=== PATIENT | female | born 1995 | race Caucasian/White ===

== ENCOUNTER 2024-02-13 14:55 | Inpatient (IN) ==
[2024-02-13] MEDS ORDERED: LIDOCAINE 1% LOCAL 20 ML VIAL INFIL PRN (15:48)
[2024-02-13] MEDS ORDERED: ACETAMINOPHEN 500 MG TAB PO PRN (15:48)
[2024-02-13] MEDS ORDERED: CALCIUM CARBONATE 500 MG CHEWABLE TAB PO PRN (15:48)
[2024-02-13 16:20] LABS: Hematocrit (blood only) 38.6 % (37.0-47.0); Hemoglobin 13.5 g/dl (12.0-16.0); Mean Corpuscular Hemoglobin 33.1 pg (25.0-34.0); Mean Corpuscular Volume 94.6 fL (80.0-100.0); Mean Platelet Volume 11.2 fL (9.4-12.4); Platelet Count 121 K/uL (130-400); RDW Coefficient of Variation 12.8 % (11.5-14.5); RDW Standard Deviation 44.3 fL (36.4-46.3); Red Blood Count 4.08 M/uL (4.20-5.40); White Blood Count 9.91 K/ul (4.8-10.8)
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
[2024-02-13] MEDS ORDERED: OXYTOCIN 30 UNITS/NSS 30 UNITS/500 ML BAG IV PRN ×2 (17:47→23:05)
[2024-02-13] MEDS: SODIUM CHLORIDE 0.9% 1,000 ML IV SCH (18:54)
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
[2024-02-13] MEDS ORDERED: NALOXONE HCL 1 MG in SODIUM CHLORIDE 0.9% 1,000 ML IV PRN (19:51)
[2024-02-13] MEDS ORDERED: ePHEDrine sulfate 50 MG/ML AMP IV PRN (19:51)
[2024-02-13] MEDS: fentANYL 2 MCG/ML BUPIVacaine 0.125%-NSS 100ML BAG ONE (19:51)
[2024-02-13] MEDS: BUPIVACAINE 0.25% PF 30 ML VIAL ONE (19:51)
[2024-02-13] MEDS ORDERED: SODIUM CHLORIDE 0.9% PF INJ 10 ML VIAL EPI PRN (19:51)
[2024-02-13] MEDS ORDERED: ROPIVACAINE 0.5% PF 5 MG/ML 20 ML VIAL EPI PRN (19:51)
[2024-02-13] MEDS ORDERED: BUPIVACAINE 0.25% PF 30 ML VIAL EPI PRN (19:51)
[2024-02-13] MEDS: fentaNYL citrate PF 100 MCG/2 ML VIAL ONE (19:51)
[2024-02-13] MEDS ORDERED: ONDANSETRON INJ 2 MG/ML 2 ML VIAL IV PRN (19:51)
[2024-02-13] MEDS ORDERED: fentANYL 2 MCG/ML BUPIVacaine 0.125%-NSS 100ML BAG EPI PRN (19:51)
[2024-02-13] MEDS ORDERED: LIDOCAINE 2% MPF LOCAL 5 ML VIAL EPI PRN (19:51)
[2024-02-13] MEDS ORDERED: NALOXONE HCL 0.4 MG/1 ML VIAL/CARP IV PRN (19:51)
[2024-02-13] MEDS ORDERED: fentaNYL citrate PF 100 MCG/2 ML VIAL EPI PRN (19:51)
[2024-02-13] MEDS: LIDOCAINE 2%/EPINEPHRINE 1:200,000 20 ML PF ONE (19:52)
[2024-02-13] MEDS: SODIUM CHLORIDE 0.9% PF INJ 10 ML VIAL ONE (19:53)
[2024-02-13] MEDS: ePHEDrine sulfate 50 MG/ML AMP ONE (19:53)
[2024-02-13] MEDS: fentaNYL citrate PF 100 MCG/2 ML VIAL EPI STA (20:11)
[2024-02-13] MEDS: SODIUM CHLORIDE 0.9% PF INJ 10 ML VIAL EPI STA (20:11)
[2024-02-13] MEDS: BUPIVACAINE 0.25% PF 30 ML VIAL EPI STA (20:11)
[2024-02-13] MEDS: LIDOCAINE 2%/EPINEPHRINE 1:200,000 20 ML PF EPI STA (20:11)
[2024-02-13] MEDS: OXYTOCIN 30 UNITS/NSS 30 UNITS/500 ML BAG IV PRN (22:59)
[2024-02-13] MEDS ORDERED: HYDROCORTISONE ACETATE 25 MG SUPP PR PRN (23:05)
[2024-02-13] MEDS ORDERED: BENZOCAINE 20% SPRY 85 APPLN/85 GM CAN EXT PRN (23:05)
--- NOTE | 2024-02-13 23:10 | Delivery Summary ---
Vaginal Delivery Summary Date of Service February 13, 2024 Vaginal Delivery Summary Spontaneously progressed to 10 cm dilated 100% effaced +2 station pushed over intact perineum without anesthesia and delivered a viable male with weight and Apgars pending. Head the delivered without difficulty quickly followed by shoulders and body. There is noted to be a tight double nuchal cord which was reduced after delivery. was noted be vigorous after delivery and a 1 minute delayed cord clamping was initiated. Cord was then double clamped and cut remained on maternal abdomen. Cord blood obtained and attention turned to deliver the placenta was delivered intact with three-vessel cord with gentle cord traction. Inspection of perineum vagina and cervix there is noted to be no lacerations. sponge and instrument counts are correct at the completion of the case. Both mother and stable in the immediate post delivery timeframe. No complications noted and blood loss per QBL. [facility] Vaginal Delivery Charge Delivery Type Details:
[2024-02-13] MEDS: DIPHTHER/TETAN/PERTUS Vaccine (Tdap, Adol/Adult) 0.5mL IM ONE (23:21)
[2024-02-14] MEDS: IBUPROFEN 600 MG TAB PO PRN (01:19)
[2024-02-14] MEDS: METHYLERGONOVINE MALEATE 0.2 MG/ML AMP IM ONE (01:40)
[2024-02-14] MEDS ORDERED: SODIUM CHLORIDE 0.9% 100 ML IV PRN (01:42)
[2024-02-14] MEDS ORDERED: SODIUM CHLORIDE 0.9% 50 ML IV PRN (01:42)
[2024-02-14 02:15] LABS: Hematocrit (blood only) 32.8 % (37.0-47.0); Hemoglobin 10.9 g/dl (12.0-16.0); Mean Corpuscular Hemoglobin 32.2 pg (25.0-34.0); Mean Corpuscular Hgb Conc 33.2 g/dL (32.0-36.0); Mean Corpuscular Volume 96.8 fL (80.0-100.0); Mean Platelet Volume 11.4 fL (9.4-12.4); Platelet Count 117 K/uL (130-400); RDW Coefficient of Variation 12.9 % (11.5-14.5); RDW Standard Deviation 46.4 fL (36.4-46.3); Red Blood Count 3.39 M/uL (4.20-5.40); White Blood Count 14.71 K/ul (4.8-10.8)
[2024-02-14 02:46] LABS: INR 0.9 (0.9-1.1); Partial Thromboplastin Ratio 1.1; Partial Thromboplastin Time 30 Seconds (21-31); Prothrombin Time 10.2 Seconds (9.0-12.0)
--- NOTE | 2024-02-14 03:10 | Anesthesia Procedure Note ---
Date of Service February 14, 2024 Anesthesia Post Epidural Note Vital Signs Vital Signs: Temp Pulse Resp BP Pulse Ox 37.2 C 117 H 18 108/56 L 98 02/13/24 22:00 02/14/24 03:03 02/13/24 22:00 02/14/24 03:03 02/13/24 23:28 Pain Intensity Bilateral Lower Abdomen: Pain Intensity: 2 Notes Mental Status: alert / awake / arousable and participated in evaluation Nausea / Vomiting: adequately controlled Pain: adequately controlled Airway Patency, RR, SpO2: stable & adequate BP & HR: stable & adequate Hydration State: stable & adequate Neuraxial Anesthesia: was administered and sensory block is resolving Anesthetic Complications: no major complications apparent Epidural: Removed without complications and With tip intact
[2024-02-14] MEDS: ACETAMINOPHEN 325 MG TAB PO PRN (04:43)
--- NOTE | 2024-02-14 08:11 | Obstetrical Progress Note ---
Date of Service February 14, 2024 Assessment & Plan Admission and Anticipated Discharge Date Admission Date: February 13, 2024 Subjective Presented for evaluation of bleeding. Irma was turned off around 720. At 1/2- hour priscilla evaluation was notable for minimal bleeding. Jaded was removed and minimal bleeding still noted. Will stay on labor and delivery for another 30 to 45 minutes to evaluate for bleeding. Uterus firm well below umbilicus. H/H scheduled for noon. Most recent blood counts reassuring and patient denying anemia symptoms Results & Data Vital Signs (Past 12 Hours) Vital Signs Temp Pulse Resp BP Pulse Ox 02/14/24 01:48 108 H 125/66 02/14/24 01:25 117 H 112/77 02/14/24 01:08 151 H 122/67 02/14/24 00:53 126 H 118/70 02/14/24 00:38 122 H 121/71 02/14/24 00:23 123 H 117/63 02/14/24 00:08 114 H 115/64 02/13/24 23:28 98 02/13/24 23:28 106 H 02/13/24 23:24 117 H 02/13/24 23:24 153/70 H 02/13/24 23:23 100 02/13/24 23:23 116 H 02/13/24 23:18 100 02/13/24 23:18 123 H 02/13/24 23:13 99 02/13/24 23:13 109 H 02/13/24 23:08 99 02/13/24 23:08 110 H 02/13/24 23:08 112 H 02/13/24 23:08 131/67 02/13/24 23:03 98 02/13/24 23:03 117 H 02/13/24 22:58 98 02/13/24 22:58 112 H 02/13/24 22:53 99 02/13/24 22:53 130 H 02/13/24 22:48 99 02/13/24 22:48 105 H 02/13/24 22:43 100 02/13/24 22:43 120 H 02/13/24 22:39 123 H 02/13/24 22:39 118/76 02/13/24 22:38 100 02/13/24 22:38 119 H 02/13/24 22:33 99 02/13/24 22:33 92 H 02/13/24 22:28 99 02/13/24 22:28 94 H 02/13/24 22:24 98 H 02/13/24 22:24 109/76 02/13/24 22:23 100 02/13/24 22:23 95 H 02/13/24 22:18 99 02/13/24 22:18 93 H 02/13/24 22:13 98 02/13/24 22:13 97 H 02/13/24 22:08 97 02/13/24 22:08 98 H 02/13/24 22:08 116/75 02/13/24 22:08 91 02/13/24 22:08 93 H 02/13/24 22:03 99 02/13/24 22:03 106 H 02/13/24 22:00 18 02/13/24 22:00 37.2 C 18 02/13/24 21:58 98 02/13/24 21:58 119 H 02/13/24 21:53 98 02/13/24 21:53 109 H 02/13/24 21:53 127/74 02/13/24 21:48 96 02/13/24 21:48 115 H 02/13/24 21:43 96 02/13/24 21:43 113 H 02/13/24 21:39 112 H 02/13/24 21:39 114/59 L 02/13/24 21:38 97 02/13/24 21:38 108 H 02/13/24 21:33 96 02/13/24 21:33 108 H 02/13/24 21:28 97 02/13/24 21:28 109 H 02/13/24 21:24 103 H 02/13/24 21:24 108/60 02/13/24 21:23 96 02/13/24 21:23 104 H 02/13/24 21:18 96 02/13/24 21:18 108 H 02/13/24 21:13 97 02/13/24 21:13 106 H 02/13/24 21:10 107 H 02/13/24 21:10 104/59 L 02/13/24 21:08 97 02/13/24 21:08 100 H 02/13/24 21:03 97 02/13/24 21:03 99 H 02/13/24 20:58 96 02/13/24 20:58 99 H 02/13/24 20:55 97 H 02/13/24 20:55 107/57 L 02/13/24 20:53 97 02/13/24 20:53 106 H 02/13/24 20:48 97 02/13/24 20:48 97 H 02/13/24 20:43 98 02/13/24 20:43 100 H 02/13/24 20:38 98 02/13/24 20:38 107 H 02/13/24 20:38 99/58 L 02/13/24 20:33 97 02/13/24 20:33 97 H 02/13/24 20:28 97 02/13/24 20:28 97 H 02/13/24 20:23 98 02/13/24 20:23 106 H 02/13/24 20:22 95 H 02/13/24 20:22 98/53 L 02/13/24 20:21 103 H 02/13/24 20:21 94/63 L 02/13/24 20:18 98 02/13/24 20:18 104 H 02/13/24 20:18 103/61 02/13/24 20:17 100 H 02/13/24 20:17 112/67 02/13/24 20:14 103 H 02/13/24 20:14 110/65 02/13/24 20:13 97 02/13/24 20:13 94 H 02/13/24 20:12 93 H 02/13/24 20:12 113/68 02/13/24 20:10 96 H 02/13/24 20:10 106/64 02/13/24 20:08 97 02/13/24 20:08 101 H 02/13/24 20:08 108/65 02/13/24 20:06 102 H 02/13/24 20:06 111/67 02/13/24 20:04 96 H 02/13/24 20:04 110/64 02/13/24 20:03 97 02/13/24 20:03 100 H 02/13/24 20:02 96 H 02/13/24 20:02 114/65 02/13/24 20:00 96 H 02/13/24 20:00 109/62 02/13/24 19:58 97 02/13/24 19:58 97 H 02/13/24 19:58 110/62 02/13/24 19:56 99 H 02/13/24 19:56 111/62 02/13/24 19:54 100 H 02/13/24 19:54 112/63 02/13/24 19:53 97 02/13/24 19:53 102 H 02/13/24 19:52 99 H 02/13/24 19:52 112/64 02/13/24 19:50 98 H 02/13/24 19:50 110/65 02/13/24 19:48 100 02/13/24 19:48 95 H 02/13/24 19:48 115/70 02/13/24 19:47 104 H 02/13/24 19:47 113/75 02/13/24 19:44 92 H 02/13/24 19:44 119/72 02/13/24 19:42 101 H 02/13/24 19:42 124/74 02/13/24 16:46 18 02/13/24 16:46 36.6 C 18 02/13/24 16:45 99 H 02/13/24 16:45 116/66 02/13/24 15:24 36.8 C 118 H 18 116/79 02/13/24 15:02 36.8 C 118 H 18 116/79 PG Care Time/CCT Total # of Minutes Spent Total Time Spent with Patient: Total time spent is greater than 50% in coordination of care (as documented) at patient's floor/unit and/or counseling patient: Coding Level of Care Code None
[2024-02-14] MEDS: DOCUSATE SODIUM 100 MG CAP PO SCH (08:48)
[2024-02-14] MEDS: PRENATAL VITAMIN 1 TAB PO SCH (08:48)
[2024-02-14] MEDS: FERROUS SULFATE 325 MG TAB PO SCH (08:48)
[2024-02-14 15:04] LABS: Hematocrit (blood only) 27.8 % (37.0-47.0); Hemoglobin 9.5 g/dl (12.0-16.0)
[2024-02-14] MEDS: bisacodyL 5 MG TABEC PO SCH (19:44)
[2024-02-14 20:09] VITALS: O2SAT 98
--- NOTE | 2024-02-15 05:51 | Obstetrical Progress Note ---
Date of Service February 15, 2024 Assessment & Plan (1) state: (2) hemorrhage: Plan Dian is a 28yo day 2 s/p w/ hemorrhage 1500cc QBL. Feeling well this AM, VSS. Continue care Encourage ambulation and Pain control as needed Hgb: 9.5 ->8.4, asymptomatic Home today Followup with Dr. March in 6wks. Admission and Anticipated Discharge Date Admission Date: February 13, 2024 Supervising Physician Co-Signing Physician Notes Resident Physician Supervision Note: I interviewed and examined the patient. Discussed with Dr. Bautista and agree with findings and plan as documented in the note. Any exceptions or clarifications are listed here: Patient with hgb drop appropriate for PPH, and this AM is ambulating without dizziness. OK to go home, iron supplementation. Documented By: Jesica Verma MD, FACOG Subjective Dian is a 28yo day 2 s/p w/ hemorrhage 1500cc QBL. Feeling well this AM, endorses some sleep overnight. Pain: denies Ambulation: yes Gas: yes Voiding: urinating, had BM Lochia: decreasing Diet: tolerating well Feeds: breast, supplementing as needed Denies headache, chest pain, SOB, n/v/d, LE pain/swelling, LE numbness/tingling. Review of Systems Review of Systems: Denies fever, body aches, chills, sweats, vision changes, significant vaginal bleeding/discharge. Physical Exam Physical Exam: General: A&Ox3, resting comfortably in bed, in no apparent distress, nontoxic in appearance Skin: warm, dry, intact HEENT: EOM intact, PERRL b/l Cardiovascular: RRR, +s1/s2, no murmurs/rubs/gallops Pulmonary: clear to auscultation b/l, no wheezes/rales/rhonchi GI/Abd: +BS, uterine fundus firm, nontender to palpation, level of umbilicus Extremities: no significant swelling or erythema of b/l LE, nontender to palpation, negative Leidy's b/l; warm, no clubbing or cyanosis Neuro: no facial droop, speech intact, moves all extremities on command Results & Data Vital Signs (Past 12 Hours) Vital Signs Temp Pulse Resp BP Pulse Ox O2 Del Method 02/14/24 23:00 36.6 C 107 H 20 107/69 98 Room Air 02/14/24 19:35 36.7 C 98 H 20 104/67 98 Room Air Laboratory Results 02/15/24 02/14/24 02/13/24 Range/Units 06:07 14:47 16:02 WBC 11.39 H (4.8-10.8) K/ul RBC 2.53 L (4.20-5.40) M/uL Hgb 8.4 L 9.5 L (12.0-16.0) g/dl Hct 24.9 L 27.8 L (37.0-47.0) % MCV 98.4 (80.0-100.0) fL MCH 33.2 (25.0-34.0) pg MCHC 33.7 (32.0-36.0) g/dL RDW Std Deviation 47.2 H (36.4-46.3) fL RDW Coeff of Tiffanie 13.3 (11.5-14.5) % Plt Count 127 L (130-400) K/uL MPV 11.2 (9.4-12.4) fL Blood Type B Positive Antibody Screen NEGATIVE Crossmatch See Detail Resident Activity Tracking Resident Involvement: Resident Care Provided Care Provided: OB Delivery (2) hemorrhage hemorrhage type: unspecified Qualified Code(s): O72.1 - Other immediate hemorrhage
[2024-02-15 06:43] LABS: Hematocrit (blood only) 24.9 % (37.0-47.0); Hemoglobin 8.4 g/dl (12.0-16.0); Mean Corpuscular Hemoglobin 33.2 pg (25.0-34.0); Mean Corpuscular Hgb Conc 33.7 g/dL (32.0-36.0); Mean Corpuscular Volume 98.4 fL (80.0-100.0); Mean Platelet Volume 11.2 fL (9.4-12.4); Platelet Count 127 K/uL (130-400); RDW Coefficient of Variation 13.3 % (11.5-14.5); RDW Standard Deviation 47.2 fL (36.4-46.3); Red Blood Count 2.53 M/uL (4.20-5.40); White Blood Count 11.39 K/ul (4.8-10.8)
[2024-02-15 07:37] VITALS: RESP 16
[2024-02-15 14:50] VITALS: BP 120/76; PULSE 120; TEMP 97.9
[2024-02-15] MEDS ORDERED: bisacodyL 10 MG SUPP PR PRN (23:05)
== END 2024-02-15 15:20 | disposition home or self-care (01) | DRG 806 ==
LOC: OPB 14:55 → 4S1 14:56 → 4E1 02-14 10:00